=== PATIENT | male | born 2000 | race Caucasian/White ===

== ENCOUNTER 2021-06-29 19:06 | Emergency (ER) | payer BC ==
[2021-06-29] MEDS ORDERED: Sodium Chloride 0.9% 1,000 ML IV ONE (19:50)
--- NOTE | 2021-06-29 19:51 | EDM.PDOC ---
ED HPI GENERAL MEDICAL PROBLEM - General Chief Complaint: Genitourinary Problem Stated Complaint: TESTICLE CYST, PAIN AND SWELLING Time Seen by Provider: 06/29/21 19:45 Source of Information: Reports: Patient History Limitations: Reports: No Limitations - History of Present Illness INITIAL COMMENTS - FREE TEXT/NARRATIVE: HISTORY AND PHYSICAL: History of present illness: Patient is a 21-year-old male who presents to the emergency room with complaints of left testicular pain. He states he was seen by Dr. Lott on 06/17/2021 for right-sided testicular pain, had an ultrasound and lab work. He states he was screened for STDs but had not heard any results on that. Was placed on Cipro x10 days. Last night he started to develop a fever, states the right testicle feels improved but now has significant pain in the left testy. States that testy is warm and red. Patient denies any headache, change in vision, syncope or near syncope. Denies any chest pain, back pain, shortness of breath or cough. Denies any abdominal pain, nausea, vomiting, diarrhea, constipation or dysuria. Has not noted any blood in urine or stool. Patient has been eating and drinking appropriately. No recent travel or sick contacts. Review of systems: As per history of present illness and below otherwise all systems reviewed and negative. Past medical history: As per history of present illness and as reviewed below otherwise noncontributory. Surgical history: As per history of present illness and as reviewed below otherwise noncontributory. Social history: See social history for further information Family history: As per history of present illness and as reviewed below otherwise noncontributory. Physical exam: General: Well developed and well nourished. Alert and orientated x 3. Nontoxic in appearance and in no acute distress. Vital signs are stable and have been reviewed by me. Nursing notes were reviewed. HEENT: Atraumatic, normocephalic, pupils equal and reactive bilaterally, negative for conjunctival pallor or scleral icterus, mucous membranes moist, TMs normal bilaterally, throat clear, neck supple, nontender, trachea midline. No drooling or trismus noted. No meningeal signs. No hot potato voice noted. Lungs: Clear to auscultation bilaterally. No wheezes, rales, or rhonchi. Chest nontender. Normal work of breathing, no accessory muscles used. Heart: S1S2, regular rate and rhythm without overt murmur, gallops, or rubs. No JVD. No peripheral edema Abdomen: Soft, nondistended, nontender. Normoactive bowel sounds. Negative for masses or costovertebral tenderness. Pelvis: Stable nontender. Genitourinary/Rectal: This was done with consent and a tire manager at the bedside. He does have redness of the left testy with tenderness to light touch. + Cremasteric reflex. No concern for hernia. No lesions or sores noted. Skin: See assessment. Intact, warm, dry. No lesions or rashes noted. Hematologic: No petechiae or purpra. Mucosa appropriate color and normal nail bed color and refill. Extremities: Atraumatic, moves all extremities per self without difficulty or deficits, negative for cords or calf pain. Neurovascular unremarkable. Neuro: Awake, alert, oriented. Cranial nerves II through XII unremarkable. Cerebellum unremarkable. Motor and sensory unremarkable throughout. Exam nonfocal. Psychiatric: Mood and affect are appropriate. Normal thought process. Answering questions appropriately. Please note that the patient was seen and evaluated during the 2019 SARS-CoV-2 novel coronavirus pandemic period. Community viral transmission is ongoing at time of this encounter and the emergency department is operating under pandemic response procedures. Medical Decision Makin06/17/21: Testicular ultrasound shows increased vascularity in the right testes and epididymis. Mild right hydrocele. Findings suggest epididymitis orchitis. Patient states he was placed on Cipro and has been taking this over the past 10 days. Patient is a 21-year-old male who presents to the emergency room with complaints of left testicular pain. He states he has been on Cipro over the past week for epididymitis of the right testy. [place] that that was improving but last evening started to develop fever and left testicular pain. States the pain is worse than previously noted. Patient is tachycardic with fever, will do blood cultures and lactate. Patient does have a leukocytosis of 17. Normal lactate. Blood cultures have been drawn. Was getting give Rocephin 500 mg IM, patient declines stating he did have an injection last week. Ultrasound shows a left epididymitis. Small left hydrocele. Findings of acute epididymis on the right seen on 06/17/2021 ultrasound have resolved. Blood flow present in both testicles. I have talked with the patient about today's findings, in addition to providing specific details for plan of care. I offered admission for IV antibiotics and continued monitoring. Patient declines. He is aware of the risks and accepts these risks. Reassessment at the time of disposition demonstrates that the patient is in no acute distress. Counseling was provided and we discussed in great detail signs and symptoms that would prompt them to return to the Emergency Department. Medication, follow up and supportive care measures were reviewed and discussed. Voices understanding and is agreeable to plan of care. Denies any further questions or concerns at this time. Diagnostics: CBC, CMP, lactate, UA, urine gonorrhea/chlamydia, blood cultures x2, testicular US Therapeutics: IV fluid, morphine, Zofran, Rocephin 500 mg IM Prescription: Doxycycline, [place] Impression: Epididymitis Plan: 1. You were evaluated today on an emergent basis. Take the Doxycycline one tab BID x 10 days. You declined admission today. But, if your symptoms should worsen, new symptoms develop or any of the signs and symptoms we discussed should arise please return to the emergency room or call 911 (if needed). 2. You can alternate Tylenol and ibuprofen as needed for pain and fever management. 3. Rest to ensure lymphatic drainage. Ice packs to area. Supportive underwear. 4. We encourage you to follow up with your primary care provider and/or urology in the next few days for re-evaluation and further care/management. Definitive disposition and diagnosis as appropriate pending reevaluation and review of above. Left Scrotum Pain Score (Numeric/FACES): 8 - Related Data Allergies Allergy/AdvReac Type Severity Reaction Status Date / Time No Known Allergies Allergy Verified 06/29/21 19:48 Social & Family History - Recreational Drug Use Recreational Drug Use: No ED ROS GENERAL - Review of Systems Review Of Systems: Comprehensive ROS is negative, except as noted in HPI. ED EXAM, RENAL/ - Physical Exam Exam: See Below (See dictation) Course - Vital Signs Last Recorded V/S: Last Vital Signs Temp 101.4 F H 06/29/21 19:41 Pulse 104 H 06/29/21 19:41 Resp 18 06/29/21 19:41 BP 119/56 L 06/29/21 19:41 Pulse Ox 98 06/29/21 19:41 - Orders/Labs/Meds Orders: Active Orders 24 hr Category Date Time Status Testicular US [Scrotum and Contents] [US] Stat Exams 06/29/21 19:48 Taken CHLAMYDIA AND GONORRHEA BY TMA Stat Lab 06/29/21 19:50 Received CULTURE BLOOD [BC] Stat Lab 06/29/21 20:03 Received CULTURE BLOOD [BC] Stat Lab 06/29/21 20:31 Received Blood Culture x2 Reflex Set [OM.PC] Stat Oth 06/29/21 19:51 Ordered Labs: Laboratory Tests 06/29/21 06/29/21 06/29/21 Range/Units 19:50 20:03 20:03 WBC 17.72 H (4.0-11.0) K/uL RBC 4.13 L (4.50-5.90) M/uL Hgb 13.0 (13.0-17.0) g/dL Hct 38.3 (38.0-50.0) % MCV 92.7 (80.0-98.0) fL MCH 31.5 (27.0-32.0) pg MCHC 33.9 (31.0-37.0) g/dL RDW Std Deviation 43.2 (28.0-62.0) fl RDW Coeff of Liam 13 (11.0-15.0) % Plt Count 278 (150-400) K/uL MPV 10.00 (7.40-12.00) fL Neut % (Auto) 80.6 H (48.0-80.0) % Lymph % (Auto) 10.7 L (16.0-40.0) % Sampson % (Auto) 8.4 (0.0-15.0) % Eos % (Auto) 0.2 (0.0-7.0) % Baso % (Auto) 0.1 (0.0-1.5) % Neut # (Auto) 14.3 H (1.4-5.7) K/uL Lymph # (Auto) 1.9 (0.6-2.4) K/uL Sampson # (Auto) 1.5 H (0.0-0.8) K/uL Eos # (Auto) 0.0 (0.0-0.7) K/uL Baso # (Auto) 0.0 (0.0-0.1) K/uL Nucleated RBC % 0.0 /100WBC Nucleated RBCs # 0 K/uL Sodium 138 (136-148) mmol/L Potassium 3.8 (3.5-5.1) mmol/L Chloride 99 (98-107) mmol/L Carbon Dioxide 28.7 (21.0-32.0) mmol/L BUN 9 (7.0-18.0) mg/dL Creatinine 0.9 (0.8-1.3) mg/dL Est Cr Clr Drug Dosing 102.37 mL/min Estimated GFR (MDRD) > 60.0 ml/min Glucose 103 (74-106) mg/dL Lactic Acid (0.4-2.0) mmol/L Calcium 8.5 (8.5-10.1) mg/dL Total Bilirubin 0.4 (0.2-1.0) mg/dL AST 24 (15-37) IU/L ALT 33 (14-63) IU/L Alkaline Phosphatase 68 (46-116) U/L Total Protein 7.5 (6.4-8.2) g/dL Albumin 3.9 (3.4-5.0) g/dL Globulin 3.6 (2.6-4.0) g/dL Albumin/Globulin Ratio 1.1 (0.9-1.6) Urine Color YELLOW Urine Appearance CLEAR Urine pH 8.5 H (5.0-8.0) Ur Specific [place] 1.020 (1.001-1.035) Urine Protein NEGATIVE (NEGATIVE) mg/dL Urine Glucose (UA) NEGATIVE (NEGATIVE) mg/dL Urine Ketones NEGATIVE (NEGATIVE) mg/dL Urine Occult Blood NEGATIVE (NEGATIVE) Urine Nitrite NEGATIVE (NEGATIVE) Urine Bilirubin NEGATIVE (NEGATIVE) Urine Urobilinogen 0.2 (<2.0) EU/dL Ur Leukocyte Esterase NEGATIVE (NEGATIVE) 06/29/21 Range/Units 20:03 WBC (4.0-11.0) K/uL RBC (4.50-5.90) M/uL Hgb (13.0-17.0) g/dL Hct (38.0-50.0) % MCV (80.0-98.0) fL MCH (27.0-32.0) pg MCHC (31.0-37.0) g/dL RDW Std Deviation (28.0-62.0) fl RDW Coeff of Liam (11.0-15.0) % Plt Count (150-400) K/uL MPV (7.40-12.00) fL Neut % (Auto) (48.0-80.0) % Lymph % (Auto) (16.0-40.0) % Sampson % (Auto) (0.0-15.0) % Eos % (Auto) (0.0-7.0) % Baso % (Auto) (0.0-1.5) % Neut # (Auto) (1.4-5.7) K/uL Lymph # (Auto) (0.6-2.4) K/uL Sampson # (Auto) (0.0-0.8) K/uL Eos # (Auto) (0.0-0.7) K/uL Baso # (Auto) (0.0-0.1) K/uL Nucleated RBC % /100WBC Nucleated RBCs # K/uL Sodium (136-148) mmol/L Potassium (3.5-5.1) mmol/L Chloride (98-107) mmol/L Carbon Dioxide (21.0-32.0) mmol/L BUN (7.0-18.0) mg/dL Creatinine (0.8-1.3) mg/dL Est Cr Clr Drug Dosing mL/min Estimated GFR (MDRD) ml/min Glucose (74-106) mg/dL Lactic Acid 1.0 (0.4-2.0) mmol/L Calcium (8.5-10.1) mg/dL Total Bilirubin (0.2-1.0) mg/dL AST (15-37) IU/L ALT (14-63) IU/L Alkaline Phosphatase (46-116) U/L Total Protein (6.4-8.2) g/dL Albumin (3.4-5.0) g/dL Globulin (2.6-4.0) g/dL Albumin/Globulin Ratio (0.9-1.6) Urine Color Urine Appearance Urine pH (5.0-8.0) Ur Specific [place] (1.001-1.035) Urine Protein (NEGATIVE) mg/dL Urine Glucose (UA) (NEGATIVE) mg/dL Urine Ketones (NEGATIVE) mg/dL Urine Occult Blood (NEGATIVE) Urine Nitrite (NEGATIVE) Urine Bilirubin (NEGATIVE) Urine Urobilinogen (<2.0) EU/dL Ur Leukocyte Esterase (NEGATIVE) Meds: Medications Discontinued Medications Generic Name Dose Route Start Last Admin Trade Name Bandar PRN Reason Stop Dose Admin Doxycycline Hyclate 100 mg 06/29/21 20:36 06/29/21 20:51 Doxycycline 100 Mg Cap PO 06/29/21 20:37 100 mg ONETIME ONE Administration Sodium Chloride 1,000 mls @ 999 mls/hr 06/29/21 19:50 06/29/21 20:08 Normal Saline IV 06/29/21 20:50 999 mls/hr STAT ONE Administration Ceftriaxone Sodium/Dextrose 1 50 mls @ 100 mls/hr 06/29/21 20:13 06/29/21 21:00 gm/ Premix IV 06/29/21 20:42 Not Given ONETIME ONE Ceftriaxone Sodium 500 mg/ 2 mls @ 2 mls/sec 06/29/21 20:31 06/29/21 20:59 Lidocaine HCl IM 06/29/21 20:32 Not Given ONETIME ONE Morphine Sulfate 4 mg 06/29/21 20:13 06/29/21 20:51 Morphine 4 Mg/Ml Syringe IVPUSH 06/29/21 20:14 4 mg ONETIME ONE Administration Ondansetron HCl 4 mg 06/29/21 20:13 06/29/21 20:51 Ondansetron 4 Mg/2 Ml Sdv IVPUSH 06/29/21 20:14 4 mg ONETIME ONE Administration Departure - Departure Time of Disposition: 21:43 Disposition: Home, Self-Care 01 Clinical Impression: Epididymitis, Hydrocele in adult - Discharge Information Instructions: Epididymitis Referrals: PCP,None [Primary Care Provider] - Forms: ED Department Discharge Additional Instructions: The following information is given to patients seen in the emergency department who are being discharged to home. This information is to outline your options for follow-up care. We provide all patients seen in our emergency department with a follow-up referral. The need for follow-up, as well as the timing and circumstances, are variable depending upon the specifics of your emergency department visit. If you don't have a primary care physician on staff, we will provide you with a referral. We always advise you to contact your personal physician following an emergency department visit to inform them of the circumstance of the visit and for follow-up with them and/or the need for any referrals to a consulting specialist. The emergency department will also refer you to a specialist when appropriate. This referral assures that you have the opportunity for follow-up care with a specialist. All of these measure are taken in an effort to provide you with optimal care, which includes your follow-up. Under all circumstances we always encourage you to contact your private physician who remains a resource for coordinating your care. When calling for follow-up care, please make the office aware that this follow-up is from your recent emergency room visit. If for any reason you are refused follow-up, please contact the [facility] Emergency Department at and asked to speak to the emergency department charge nurse. [facility] [address] [place] [id number] [place] [address] Thank you for choosing the [facility] emergency department in [place] for your medical needs today. It was a pleasure caring for you. Today you were seen in the emergency department for testicular pain. 1. You were evaluated today on an emergent basis. Take the Doxycycline one tab BID x 10 days. You declined admission today. But, if your symptoms should worsen, new symptoms develop or any of the signs and symptoms we discussed should arise please return to the emergency room or call 911 (if needed). 2. You can alternate Tylenol and ibuprofen as needed for pain and fever management. 3. Rest to ensure lymphatic drainage. Ice packs to area. Supportive underwear. 4. We encourage you to follow up with your primary care provider and/or urology in the next few days for re-evaluation and further care/management. Sepsis Event Note (ED) - Focused Exam Vital Signs: Vital Signs Temp Pulse Resp BP Pulse Ox 06/29/21 19:41 101.4 F H 104 H 18 119/56 L 98 - My Orders Last 24 Hours: My Active Orders 06/29/21 19:48 Testicular US [Scrotum and Contents] [US] Stat 06/29/21 19:50 CHLAMYDIA AND GONORRHEA BY TMA Stat 06/29/21 19:51 Blood Culture x2 Reflex Set [OM.PC] Stat 06/29/21 20:03 CULTURE BLOOD [BC] Stat 06/29/21 20:31 CULTURE BLOOD [BC] Stat - Assessment/Plan Last 24 Hours: My Active Orders 06/29/21 19:48 Testicular US [Scrotum and Contents] [US] Stat 06/29/21 19:50 CHLAMYDIA AND GONORRHEA BY TMA Stat 06/29/21 19:51 Blood Culture x2 Reflex Set [OM.PC] Stat 06/29/21 20:03 CULTURE BLOOD [BC] Stat 06/29/21 20:31 CULTURE BLOOD [BC] Stat
[2021-06-29] MEDS ORDERED: cefTRIAXone 1 GM in Premix Bag 1 BAG IV ONE (20:13)
[2021-06-29] MEDS ORDERED: Morphine 4 MG/ML Syringe IVPUSH ONE (20:13)
[2021-06-29] MEDS ORDERED: Ondansetron 4 MG/2 ML SDV IVPUSH ONE (20:13)
[2021-06-29 20:35] LABS: BLOOD UREA NITROGEN,BUN 9 mg/dL (7.0-18.0); CARBON DIOXIDE,CO2 28.7 mmol/L (21.0-32.0); CHLORIDE,CL 99 mmol/L (98-107); GLUCOSE RANDOM 103 mg/dL (74-106); POTASSIUM,K 3.8 mmol/L (3.5-5.1); SODIUM,NA 138 mmol/L (136-148)
[2021-06-29] MEDS ORDERED: Doxycycline 100 MG Cap PO ONE (20:36)
[2021-06-29] MEDS: cefTRIAXone 500 MG in Lidocaine 1% 2 ML IM ONE ×2 (20:51→20:59)
--- NOTE | 2021-06-29 21:34 | US ---
HISTORY: Left scrotal pain. TECHNIQUE: Ultrasound of the scrotum using grayscale, color Doppler, and spectral Doppler. COMPARISON: Scrotal ultrasound 06/17/2021. FINDINGS: Right testicle measures 4.1 x 3 x 2.6 cm. Homogeneous testicular echogenicity. No testicular mass. Blood flow with normal arterial and venous spectral Doppler waveforms in the testicle. No testicular hyperemia. Small epididymal cyst. Epididymis is otherwise unremarkable. No hydrocele. No varicocele. Left testicle measures 3.6 x 2.8 x 2.3 cm. Homogeneous testicular echogenicity. No testicular mass. Blood flow with normal arterial spectral Doppler waveform in the testicle. Epididymis is enlarged and heterogeneous with increased color Doppler signal. Small hydrocele. No varicocele. IMPRESSION: 1. Left epididymitis. Small left hydrocele. 2. Findings of acute epididymis on the right seen on 06/17/2021 ultrasound have resolved. 3. Blood flow present in both testicles. Dictated by Devin Arora MD @ 06/29/2021 9:34:07 PM (Electronically Signed)
--- NOTE | 2021-06-30 09:53 | US ---
EXAM DATE: 06/29/21 PATIENT'S AGE: 21 Patient: FLORENCIA FRANCISCO [facility] : [facility] Study: US-Testicle -06/29/2021 8:35:06 PM Ordering Physician: ED Provider Temporary Final Report: HISTORY: Left scrotal pain. TECHNIQUE: Ultrasound of the scrotum using grayscale, color Doppler, and spectral Doppler. COMPARISON: Scrotal ultrasound 06/17/2021. FINDINGS: Right testicle measures 4.1 x 3 x 2.6 cm. Homogeneous testicular echogenicity. No testicular mass. Blood flow with normal arterial and venous spectral Doppler waveforms in the testicle. No testicular hyperemia. Small epididymal cyst. Epididymis is otherwise unremarkable. No hydrocele. No varicocele. Left testicle measures 3.6 x 2.8 x 2.3 cm. Homogeneous testicular echogenicity. No testicular mass. Blood flow with normal arterial spectral Doppler waveform in the testicle. Epididymis is enlarged and heterogeneous with increased color Doppler signal. Small hydrocele. No varicocele. IMPRESSION: 1. Left epididymitis. Small left hydrocele. 2. Findings of acute epididymis on the right seen on 06/17/2021 ultrasound have resolved. 3. Blood flow present in both testicles. Dictated by Devin Arora MD @ 06/29/2021 9:34:07 PM Signed by: Devin Arora MD @06/29/2021 9:34:07 PM (Electronic Signature) Report Signed by Proxy. FRANCINE
[2021-07-01 11:07] LABS: C.TRACHOMATIS BY TMA Negative (Negative); N.GONORRHOEAE BY TMA Negative (Negative)
== END 2021-06-29 22:27 | disposition home or self-care (01) ==
LOC: MW.ED 19:06
DX: N45.1 Epididymitis (principal)
CPT/HCPCS: 36415; 76870; 80053; 81003; 83605; 85025; 87040; 87491; 87591; 93976; 96374; 96375; 99284; A9270; J2270; J2405; J7030; J0696